=== PATIENT | male | born 1985 | race Hispanic/Latino ===

== ENCOUNTER 2020-02-21 15:47 | Emergency (ER) | payer OTHER ==
[~2020-02-21] VITALS: Ht 172.7 cm; Wt 72.6 kg
[2020-02-21] MEDS ORDERED: TRAZODONE HCL50 MG PO (16:03)
[2020-02-21] MEDS ORDERED: VENTOLIN HFA18 GM INH (16:04)
[2020-02-21] MEDS ORDERED: ARNUITY ELLIP200 MCG (16:04)
[2020-02-21] MEDS ORDERED: CETIRIZINE HCL10 MG PO (16:04)
[2020-02-21] MEDS ORDERED: VOLTAREN-XR100 MG PO (16:05)
[2020-02-21] MEDS ORDERED: PAROXETINE HCL20 MG PO (16:05)
[2020-02-21] MEDS ORDERED: RISPERDAL1 MG PO (16:06)
== END 2020-02-21 18:16 | disposition home or self-care (01) ==
LOC: ED 15:47
DX: S00.83XA Contusion of other part of head, initial encounter (principal); H53.149 Visual discomfort, unspecified; G40.909 Epilepsy, unspecified, not intractable, without status epilepticus; J45.909 Unspecified asthma, uncomplicated; Z79.899 Other long term (current) drug therapy; W22.8XXA Striking against or struck by other objects, initial encounter
CPT/HCPCS: 70450; 70486; 99283-25